=== PATIENT | female | born 1945 | race Caucasian/White ===

== ENCOUNTER 2016-09-10 07:50 | Emergency (ER) | payer OTHER, MEDICARE ==
[~2016-09-10] VITALS: Ht 154.9 cm; Wt 75.8 kg
[~2016-09-10 07:50] MED LIST: AMARYL 2 MG2 MG PO; AMARYL2 M1 PO; AMOXIL500 MG PO; AMPICILLIN500 MG PO; ANTIVERT 12.512.5 MG PO; ANTIVERT 25MG #1 PAC PO; CRESTOR40 M1 PO; CRESTOR5 M1 PO; ECOTRIN81 MG PO; EXFORGE 10 MG-31 TAB PO; EXFORGE 5-1601 EACH PO; GLUMETZA1000 M1 PO; GLUMETZA500 MG PO; PERCOCET 325 MG1 TA2 PO; PREDNISONE20 M1 PO; REGLAN10 MG PO
--- NOTE | 2016-09-10 08:32 | ED SKIN/ALLERGY COMPLAINT ---
History of Present Illness General Chief Complaint: Allergy Symptoms Stated Complaint: PT C/O "RASH ALL OVER BODY" Source: patient, old records Exam Limitations: no limitations Vital Signs & Intake/Output Vital Signs & Intake/Output Vital Signs Date Time Temp Pulse Resp B/P Pulse O2 O2 Flow FiO2 Ox Delivery Rate 09/10 0755 97.5 100 16 146/89 98 Room Air Allergies Coded Allergies: amoxicillin (Severe, RASH 09/10/16) clindamycin (Intermediate, RASH 09/10/16) Reconcile Medications Amlodipine/Valsartan (Exforge 5-160 MG Tablet) 1 EACH TABLET 1 TAB PO DAILY HEART (Reported) Aspirin (Ecotrin) 81 MG ECT 1 TAB PO DAILY HEART/BLOOD (Reported) Glimepiride (Amaryl) 2 MG TABLET 1 TAB PO DAILY DIABETES (Reported) Metformin HCl (Glumetza) 1,000 MG [id number] 1 TAB PO BID DIABETES (Reported) Rosuvastatin Calcium (Crestor) 5 MG TABLET 1 TAB PO DAILY CHOLESTEROL ( Reported) Triage Note: 71 Y/O FEMALE C/O RASH ALL OVER BODY; STATES SHE TOOK CLINDAMYCIN WEDNESDAY FOR A DENTAL PROCEDURE AND HAS HAD RASH SINCE - HAS NOT TAKEN MEDICATION SINCE WEDNESDAY. HAS BEEN TAKING BENADYL WITH LITTLE RELIEF Triage Nurses Notes Reviewed? yes HPI: Patient presents for evaluation of all over rash that began Wednesday after taking clindamycin. Patient states she had a similar reaction although more severe when she took penicillin last year. The rash is a diffuse somewhat itchy red rash that continues despite discontinuation of the clindamycin. She has been taking 50 mg of Benadryl twice daily without improvement. She denies any associated dyspnea swelling or trouble swallowing. The rest is described as constant and severe and nothing seems to make it better. Past History Travel History Traveled to [place] past 21 day No Medical History Any Pertinent Medical History? see below for history Neurological: NONE EENT: NONE Cardiovascular: hypertension, hyperlipidemia Respiratory: NONE Gastrointestinal: NONE Hepatic: NONE Renal: NONE Musculoskeletal: NONE Psychiatric: NONE Endocrine: diabetes Blood Disorders: NONE Cancer(s): NONE ARC TRIMMER/Reproductive: NONE History of MRSA: No History of VRE: No History of CDIFF: No Isolation History: Standard Surgical History Surgical History: cholecystectomy, hernia repair-umbilical, bladder tumor resection Psychosocial History Who do you live with Patient and family Services at Home None What is your primary language Indian Tobacco Use: Never used Family History Family History, If Any: MOTHER *No pertinent family history Relation not specified for: FH: heart disease Hx Contributory? No Review of Systems Review of Systems Constitutional: Reports: no symptoms. EENTM: Reports: no symptoms. Respiratory: Reports: no symptoms. Cardiovascular: Reports: no symptoms. GI: Reports: no symptoms. Genitourinary: Reports: no symptoms. Musculoskeletal: Reports: no symptoms. Skin: Reports: see HPI. Neurological/Psychological: Reports: no symptoms. Hematologic/Endocrine: Reports: no symptoms. Immunologic/Allergic: Reports: no symptoms. All Other Systems: Reviewed and Negative Physical Exam Physical Exam General Appearance: SEE BELOW Comments: Gen.: Well-nourished, well-developed, no acute respiratory distress. Head: Normocephalic, atraumatic. Eyes: Normal inspection bilaterally, no conjunctival injection Ears: Normal inspection bilaterally Nose: Normal inspection, no rhinorrhea Throat/mouth : Moist mucosa, no oropharyngeal erythema or soft tissue swelling, no lip swelling Neck: Supple, full range of motion, no goiter, no stridor Heart: Regular rate and rhythm, no murmurs rubs or gallops Lungs: Clear to auscultation bilaterally with normal air entry Chest: Nontender Back: Normal range of motion Abdomen: Soft, nontender, nondistended, normal bowel sounds Extremities: Normal range of motion grossly, equal radial pulses, no cyanosis clubbing or edema Neurologic: Cranial nerves grossly intact, speech is clear Skin: warm and dry, diffuse fine macular rash without vesicles or bulla ecchymoses or desquamation. Psychiatric: Calm, cooperative, no apparent delusions or hallucinations Progress Differential Diagnosis: ALLERGIC REACTION Plan of Care: Current Medications Sig/Leana Start time Last Medication Dose Stop Time Status Admin Diphenhydramine HCl 50 MG ONCE ONE 09/10 829 UNVr (Benadryl) 09/10 830 Famotidine 20 MG ONCE ONE 09/10 829 UNVr (Pepcid) 09/10 830 Comments: Patient declined prednisone because it gave her severely high sugar levels in the past. 09/10/2016 9:37:20 AM patient states the itching is settling down but the rash persists. The patient has no fever or cold symptoms to suggest an infectious etiology. Her symptoms are temporally related to an antibiotic and she has had a similar reaction in the past to an antibiotic. And follow up with natural gas inspector. Departure Departure Disposition: HOME OR SELF CARE Condition: Stable Clinical Impression Primary Impression: Antibiotic-induced allergic rash Referrals: MANUELA RODRIGUEZ,VANI Delgadillo (PCP/Family) Additional Instructions: Benadryl and Pepcid as prescribed for your allergic reaction. Follow-up with your primary care physician or the natural gas inspector listed on Wednesday if not improved. Return if any concerns or sudden worsening. Thank you for choosing the [facility] for your care. It was a pleasure to serve you today. Santiago Lantigua M.D. [facility] Departure Forms: Customer Survey General Discharge Information Prescriptions: Current Visit Scripts Diphenhydramine HCl (Benadryl) 2 CAP PO Q6 PRN ALLERGIC REACTION #40 CAP Famotidine (Pepcid) 1 TAB PO BID PRN ALLERGIC REACTION #10 TAB
[2016-09-10] MEDS ORDERED: BENADRYL25 MG PO (09:40)
[2016-09-10] MEDS ORDERED: PEPCID20 M1 PO (09:40)
[2016-09-10 09:51] VITALS: BP 138/74
== END 2016-09-10 09:50 ==
LOC: ERH 07:50
DX: L27.0 Generalized skin eruption due to drugs and medicaments taken internally (principal); T36.8X5A Adverse effect of other systemic antibiotics, initial encounter